=== PATIENT | male | born 1950 | race Caucasian/White ===

== ENCOUNTER 2020-04-07 22:37 | Emergency (ER) | payer OTHER, MEDICARE ==
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
== END 2020-04-07 22:55 ==
LOC: DL.ED 22:37
DX: F10.120 Alcohol abuse with intoxication, uncomplicated (principal); Z88.0 Allergy status to penicillin
CPT/HCPCS: 99282; 99284

== ENCOUNTER 2023-03-07 15:30 | Emergency (ER) | payer MEDICARE, OTHER ==
[2023-03-07 16:21] LABS: BASOPHILS PERCENT AUTO 0.1 % (0.0-1.0); HEMATOCRIT 49.2 % (40.0-54.0); HEMOGLOBIN 16.8 g/dL (14.0-18.0); LYMPHOCYTES PERCENT AUTO 2.6 % (20.5-50.1); MEAN CORPUSCULAR HEMOGLOBIN 33.7 pg (27.0-34.0); MEAN CORPUSCULAR HGB CONC 34.1 g/dL (33.0-35.0); MEAN CORPUSCULAR VOLUME 98.8 fL (80-100); MONOCYTES PERCENT AUTO 3.4 % (2-8); NEUTROPHILS PERCENT AUTO 93.9 % (42.2-75.2); PLATELET COUNT,PLT 128 10^3/uL (150-450); RED BLOOD CELL COUNT 4.98 10^6/uL (4.6-6.2); WHITE BLOOD CELL COUNT,WBC 11.4 10^3/uL (5.0-10.0)
[2023-03-07] MEDS: Sodium Chloride 0.9% 10 ML Syringe FLUSH PRN ×4 (16:24→18:06)
[2023-03-07 16:37] LABS: ALANINE AMINOTRANSFERASE,ALT 96 U/L (16-63); ALBUMIN 3.4 g/dL (3.4-5.0); ALKALINE PHOSPHATASE 110 U/L (46-116); ANION GAP 17.1 mEq/L (7-13); ASPARTATE AMNIOTRANSFERASE,AST 177 U/L (15-37); BILIRUBIN TOTAL 2.9 mg/dL (0.2-1.0); BLOOD UREA NITROGEN,BUN 9 mg/dL (7-18); BUN/CREATININE RATIO 8.5 (No establ ref range); CALCIUM 8.9 mg/dL (8.5-10.1); CARBON DIOXIDE,CO2 24 mmol/L (21-32); CHLORIDE,CL 103 mmol/L (98-107); CREATININE 1.06 mg/dL (0.70-1.30); EST CRCL DRUG DOSING (CG) 67.11 mL/min; GLUCOSE RANDOM 250 mg/dL (70-99); MAGNESIUM 1.4 mg/dL (1.8-2.4); POTASSIUM,K 4.1 mmol/L (3.5-5.1); PROTEIN TOTAL,TP 6.8 g/dL (6.4-8.2); SODIUM,NA 140 mmol/L (136-145)
[2023-03-07 16:38] LABS: ESTIMATED GFR 74 mL/min (>=60); ETHANOL BLOOD MEDICAL < 3 mg/dL (0)
[2023-03-07 16:39] LABS: LACTIC ACID 4.9 mmol/L (0.4-2.0)
[2023-03-07 16:41] LABS: AMPHETAMINES,URINE NEGATIVE (NEGATIVE); BARBITURATES,URINE NEGATIVE (NEGATIVE); BENZODIAZEPINE,URINE NEGATIVE (NEGATIVE); MDMA (ECSTASY), URINE NEGATIVE (NEGATIVE); METHADONE,URINE NEGATIVE (NEGATIVE); METHAMPHETAMINES,URINE NEGATIVE (NEGATIVE); OPIATES,URINE NEGATIVE (NEGATIVE); OXYCODONE,URINE NEGATIVE (NEGATIVE); PHENCYCLIDINE,URINE NEGATIVE (NEGATIVE); TCA,URINE NEGATIVE (NEGATIVE)
[2023-03-07] MEDS ORDERED: Metoprolol Tartrate 5 MG/5 ML SDV IVPUSH ONE ×2 (16:48→17:50)
[2023-03-07] MEDS ORDERED: Sodium Chloride 0.9% 1,000 ML IV ONE (16:51)
[2023-03-07] MEDS ORDERED: Magnesium Sulfate/Water 2 GM in Premix Bag 1 BAG IV ONE (16:52)
[2023-03-07 17:01] LABS: PROTHROMBIN TIME 10.4 SEC (9.0-12.0)
[2023-03-07] MEDS ORDERED: Heparin Sodium 5,000 Units/ML Vial IVPUSH ONE (17:31)
[2023-03-07 17:42] LABS: O2 DELIVERY DEVICE ROOM AIR
[2023-03-07 17:43] LABS: BASE EXCESS ARTERIAL 0 mmol/L ((-2)-(+3)); BICARBONATE,ARTERIAL 23.9 mmol/L (22-26); O2 SATURATION ARTERIAL 93 % (95-100); PCO2 ARTERIAL 39 mmHg (35-45); PH,ARTERIAL 7.41 (7.35-7.45); PO2 ARTERIAL 64 mmHg (70-100)
[2023-03-07] MEDS ORDERED: Heparin Sodium/0.45% NaCl 25,000 UNITS/500 ML BAG IV SCH (17:45)
[2023-03-07] MEDS ORDERED: Diltiazem 125 MG in Sodium Chloride 0.9% 100 ML IV SCH (18:30)
[2023-03-07] MEDS ORDERED: Diltiazem 25 MG/5 ML SDV IVPUSH ONE (18:30)
== END 2023-03-07 19:17 ==
LOC: DL.ED 15:30
DX: I48.91 Unspecified atrial fibrillation (principal); F10.939 Alcohol use, unspecified with withdrawal, unspecified; E83.42 Hypomagnesemia; R74.02 Elevation of levels of lactic acid dehydrogenase [LDH]; Z88.0 Allergy status to penicillin
CPT/HCPCS: 36415; 36600; 70450; 71045; 80053; 80305; 80307; 82140; 82803; 83605; 83735; 84145; 84484; 85025; 85610; 85730; 86140; 93005; 93010; 96365; 96368; 96375; 96376; 99284; 99285; C1758; J1644; J3475; J3490; J7030

== ENCOUNTER 2023-04-22 13:29 | Inpatient (IN) | payer MEDICARE ==
[~2023-04-22 13:29] MED LIST: Iopamidol 612 MG/ML 100 ML Bottle IVPUSH ONE; Ondansetron 4 MG/2 ML SDV IV ONE; Sodium Chloride 0.9% 1,000 ML IV ONE
[2023-04-22 13:33] LABS: BASOPHILS PERCENT AUTO 0.2 % (0.0-1.0); HEMATOCRIT 45.4 % (40.0-54.0); HEMOGLOBIN 15.2 g/dL (14.0-18.0); LYMPHOCYTES PERCENT AUTO 6.2 % (20.5-50.1); MEAN CORPUSCULAR HEMOGLOBIN 33.1 pg (27.0-34.0); MEAN CORPUSCULAR HGB CONC 33.5 g/dL (33.0-35.0); MEAN CORPUSCULAR VOLUME 98.9 fL (80-100); MONOCYTES PERCENT AUTO 7.8 % (2-8); NEUTROPHILS PERCENT AUTO 85.8 % (42.2-75.2); PLATELET COUNT,PLT 142 10^3/uL (150-450); RED BLOOD CELL COUNT 4.59 10^6/uL (4.6-6.2); WHITE BLOOD CELL COUNT,WBC 5.1 10^3/uL (5.0-10.0)
[2023-04-22 13:48] LABS: B-TYPE NATRIURETIC PEPTIDE,BNP 42 pg/ml (0-100)
[2023-04-22 13:53] LABS: PROTHROMBIN TIME 10.4 SEC (9.0-12.0); PTT,PARTIAL THROMBOPLSTIN TIME 24.5 SEC (22.0-34.0)
[2023-04-22] MEDS ORDERED: Diltiazem 25 MG/5 ML SDV IVPUSH ONE (13:53)
[2023-04-22 13:58] LABS: ALANINE AMINOTRANSFERASE,ALT 119 U/L (16-63); ALKALINE PHOSPHATASE 178 U/L (46-116); ANION GAP 15.5 mEq/L (7-13); ASPARTATE AMNIOTRANSFERASE,AST 153 U/L (15-37); BILIRUBIN TOTAL 1.4 mg/dL (0.2-1.0); BLOOD UREA NITROGEN,BUN 10 mg/dL (7-18); BUN/CREATININE RATIO 8.3 (No establ ref range); CALCIUM 9.1 mg/dL (8.5-10.1); CARBON DIOXIDE,CO2 27 mmol/L (21-32); CHLORIDE,CL 103 mmol/L (98-107); CREATININE 1.21 mg/dL (0.70-1.30); GLUCOSE RANDOM 265 mg/dL (70-99); POTASSIUM,K 3.5 mmol/L (3.5-5.1); PROTEIN TOTAL,TP 6.9 g/dL (6.4-8.2); SODIUM,NA 142 mmol/L (136-145)
[2023-04-22 14:05] LABS: A/G RATIO 0.77; ESTIMATED GFR 63 mL/min (>=60)
[2023-04-22 14:06] LABS: ETHANOL BLOOD MEDICAL < 3 mg/dL (0); MAGNESIUM 1.5 mg/dL (1.8-2.4); TSH ULTRASENSITIVE 0.88 uIU/mL (0.36-3.74)
[2023-04-22] MEDS: Diltiazem 125 MG in Sodium Chloride 0.9% 100 ML IV SCH ×2 (14:08→22:57)
[2023-04-22 14:11] LABS: LACTIC ACID 3.5 mmol/L (0.4-2.0)
[2023-04-22 14:12] LABS: AMYLASE 1366 U/L (25-115)
[2023-04-22 14:13] LABS: LIPASE > 2250 U/L (73-393)
[2023-04-22 15:06] LABS: APPEARANCE,URINE CLEAR (CLEAR); BILIRUBIN,URINE NEGATIVE (NEGATIVE); COLOR,URINE YELLOW (YELLOW); GLUCOSE,URINE NEGATIVE (NEGATIVE); KETONES,URINE NEGATIVE (NEGATIVE); LEUKOCYTE ESTERASE,URINE NEGATIVE (NEGATIVE); NITRITE,URINE NEGATIVE (NEGATIVE); OCCULT BLOOD,URINE SMALL (NEGATIVE); PH,URINE 6.5 (5.0-9.0); PROTEIN,URINE NEGATIVE (NEGATIVE)
[2023-04-22 15:08] LABS: AMPHETAMINES,URINE NEGATIVE (NEGATIVE); BARBITURATES,URINE NEGATIVE (NEGATIVE); BENZODIAZEPINE,URINE NEGATIVE (NEGATIVE); MDMA (ECSTASY), URINE NEGATIVE (NEGATIVE); METHADONE,URINE NEGATIVE (NEGATIVE); METHAMPHETAMINES,URINE NEGATIVE (NEGATIVE); OPIATES,URINE NEGATIVE (NEGATIVE); OXYCODONE,URINE NEGATIVE (NEGATIVE); PHENCYCLIDINE,URINE NEGATIVE (NEGATIVE); TCA,URINE NEGATIVE (NEGATIVE)
[2023-04-22] MEDS: Sodium Chloride 0.9% 10 ML Syringe FLUSH PRN ×3 (15:08→22:52)
[2023-04-22 15:14] LABS: EPITHELIAL CELLS,URINE RARE /HPF (NOT SEEN)
[2023-04-22 15:15] LABS: BACTERIA,URINE RARE /HPF (0-FEW/HPF); RBC,URINE 0-5 /HPF (0-5); WBC,URINE 0-5 /HPF (0-5/HPF)
[2023-04-22] MEDS ORDERED: Sodium Chloride 0.9% 1,000 ML IV ONE (15:57)
[2023-04-22] MEDS ORDERED: Magnesium Sulfate/Water 2 GM in Premix Bag 1 BAG IV ONE ×2 (17:12→17:13)
[2023-04-22] MEDS ORDERED: Bisacodyl 5 MG Tab PO PRN (17:47)
[2023-04-22] MEDS: Dextrose 5%-0.9% NaCl with KCl 1,000 ML IV SCH (18:25)
[2023-04-22] MEDS ORDERED: MVI, Adult with Vitamin K 10 ML, Folic Acid 1 MG, Thiamine 100 MG in Lactated Ringers 1... IV ONE ×4 (18:25)
[2023-04-22] MEDS ORDERED: MVI, Adult with Vitamin K 10 ML SDV IV ONE (18:25)
[2023-04-22] MEDS ORDERED: cloNIDine 0.1 MG Tab PO PRN (18:25)
[2023-04-22] MEDS: Morphine 2 MG/ML SYRINGE IVPUSH PRN ×2 (20:30→22:51)
[2023-04-22] MEDS ORDERED: Multivitamin Tab PO SCH (22:15)
[2023-04-22] MEDS ORDERED: Albuterol 6.7 GM Inhaler INH PRN (22:35)
[2023-04-22] MEDS: Thiamine 100 MG Tab PO SCH (22:49)
[2023-04-22] MEDS: Multivitamin Tab PO SCH (22:50)
[2023-04-22] MEDS: Folic Acid 1 MG Tab PO SCH (22:50)
[2023-04-22] MEDS: LORazepam 0.5 MG Tab PO PRN (23:45)
[2023-04-22] MEDS: Atenolol 50 MG Tab PO SCH (23:57)
[2023-04-23] MEDS: Dextrose 5%-0.9% NaCl with KCl 1,000 ML IV SCH ×3 (01:35→16:34)
[2023-04-23] MEDS: Pantoprazole 40 MG Tab.CR PO SCH (06:24)
[2023-04-23 06:38] LABS: BASOPHILS PERCENT AUTO 0.2 % (0.0-1.0); HEMATOCRIT 44.3 % (40.0-54.0); LYMPHOCYTES PERCENT AUTO 16.2 % (20.5-50.1); MEAN CORPUSCULAR HEMOGLOBIN 32.8 pg (27.0-34.0); MEAN CORPUSCULAR HGB CONC 31.6 g/dL (33.0-35.0); MEAN CORPUSCULAR VOLUME 103.7 fL (80-100); MONOCYTES PERCENT AUTO 8.7 % (2-8); NEUTROPHILS PERCENT AUTO 74.9 % (42.2-75.2); PLATELET COUNT,PLT 102 10^3/uL (150-450); RED BLOOD CELL COUNT 4.27 10^6/uL (4.6-6.2); WHITE BLOOD CELL COUNT,WBC 6.2 10^3/uL (5.0-10.0)
[2023-04-23 07:05] LABS: ALBUMIN 2.6 g/dL (3.4-5.0); ANION GAP 10.1 mEq/L (7-13); BILIRUBIN TOTAL 0.9 mg/dL (0.2-1.0); BUN/CREATININE RATIO 9.5 (No establ ref range); CALCIUM 8.2 mg/dL (8.5-10.1); CREATININE 0.84 mg/dL (0.70-1.30); EST CRCL DRUG DOSING (CG) 84.68 mL/min; POTASSIUM,K 4.1 mmol/L (3.5-5.1); PROTEIN TOTAL,TP 6.3 g/dL (6.4-8.2)
[2023-04-23 07:06] LABS: A/G RATIO 0.7
[2023-04-23] MEDS: Hydrochlorothiazide 25 MG Tab PO SCH (08:31)
[2023-04-23] MEDS: Multivitamin Tab PO SCH (08:31)
[2023-04-23] MEDS: Allopurinol 300 MG Tab PO SCH (08:31)
[2023-04-23] MEDS: Thiamine 100 MG Tab PO SCH (08:31)
[2023-04-23] MEDS: Folic Acid 1 MG Tab PO SCH (08:31)
[2023-04-23] MEDS: DULoxetine 30 MG Cap PO SCH (08:31)
[2023-04-23] MEDS: Lisinopril 20 MG Tab PO SCH (08:33)
[2023-04-23] MEDS: Atenolol 50 MG Tab PO SCH (08:33)
[2023-04-23] MEDS: cefTRIAXone 2 GM Vial IVPUSH SCH (09:55)
[2023-04-23] MEDS: Carvedilol 6.25 MG Tab PO SCH ×2 (09:55→17:33)
[2023-04-23 11:09] LABS: HEMOGLOBIN A1C 7.4 % (<5.7)
[2023-04-23] MEDS: Loratadine 10 MG Tab PO SCH (11:14)
[2023-04-23] MEDS: Sodium Chloride 0.9% 10 ML Syringe FLUSH PRN ×3 (21:13→21:17)
[2023-04-24] MEDS: LORazepam 0.5 MG Tab PO PRN ×2 (00:32→16:18)
[2023-04-24] MEDS: Albuterol/Ipratropium 3.0-0.5 MG/3 ML Neb Soln NEB SCH ×5 (00:55→21:01)
[2023-04-24] MEDS: Pantoprazole 40 MG Tab.CR PO SCH (05:29)
[2023-04-24 06:19] LABS: HEMATOCRIT 40.6 % (40.0-54.0); HEMOGLOBIN 12.8 g/dL (14.0-18.0); MEAN CORPUSCULAR HEMOGLOBIN 32.5 pg (27.0-34.0); MEAN CORPUSCULAR HGB CONC 31.5 g/dL (33.0-35.0); RED BLOOD CELL COUNT 3.94 10^6/uL (4.6-6.2); WHITE BLOOD CELL COUNT,WBC 4.8 10^3/uL (5.0-10.0)
[2023-04-24] MEDS ORDERED: Albuterol/Ipratropium 3.0-0.5 MG/3 ML Neb Soln NEB SCH (07:00)
[2023-04-24] MEDS: Lisinopril 20 MG Tab PO SCH (09:12)
[2023-04-24] MEDS: Multivitamin Tab PO SCH (09:12)
[2023-04-24] MEDS: DULoxetine 30 MG Cap PO SCH (09:12)
[2023-04-24] MEDS: Thiamine 100 MG Tab PO SCH (09:12)
[2023-04-24] MEDS: Carvedilol 6.25 MG Tab PO SCH ×2 (09:13→17:42)
[2023-04-24] MEDS: Allopurinol 300 MG Tab PO SCH (09:13)
[2023-04-24] MEDS: Loratadine 10 MG Tab PO SCH (09:14)
[2023-04-24] MEDS: Folic Acid 1 MG Tab PO SCH (09:14)
[2023-04-24] MEDS: Hydrochlorothiazide 25 MG Tab PO SCH (09:14)
[2023-04-24] MEDS: Sodium Chloride 0.9% 10 ML Syringe FLUSH PRN ×2 (09:15→10:52)
[2023-04-24] MEDS: cefTRIAXone 2 GM Vial IVPUSH SCH (09:16)
[2023-04-24 10:05] LABS: ALBUMIN 2.3 g/dL (3.4-5.0); ANION GAP 6.9 mEq/L (7-13); BILIRUBIN TOTAL 0.6 mg/dL (0.2-1.0); BUN/CREATININE RATIO 11.4 (No establ ref range); CALCIUM 8.2 mg/dL (8.5-10.1); CREATININE 0.79 mg/dL (0.70-1.30); EST CRCL DRUG DOSING (CG) 90.04 mL/min; POTASSIUM,K 3.9 mmol/L (3.5-5.1)
[2023-04-24 10:12] LABS: A/G RATIO 0.62
[2023-04-24] MEDS ORDERED: Carvedilol 6.25 MG Tab PO ONE (10:15)
[2023-04-24] MEDS: Furosemide 40 MG/4 ML VIAL IVPUSH SCH (10:52)
[2023-04-24] MEDS ORDERED: Albuterol/Ipratropium 3.0-0.5 MG/3 ML Neb Soln ONE (20:58)
[2023-04-25] MEDS: Pantoprazole 40 MG Tab.CR PO SCH (05:42)
[2023-04-25] MEDS: Albuterol/Ipratropium 3.0-0.5 MG/3 ML Neb Soln NEB SCH ×4 (07:05→20:17)
[2023-04-25] MEDS: Thiamine 100 MG Tab PO SCH (08:04)
[2023-04-25] MEDS: Carvedilol 6.25 MG Tab PO SCH ×2 (08:05→18:15)
[2023-04-25] MEDS: Multivitamin Tab PO SCH (08:05)
[2023-04-25] MEDS: Loratadine 10 MG Tab PO SCH (08:05)
[2023-04-25] MEDS: DULoxetine 30 MG Cap PO SCH (08:06)
[2023-04-25] MEDS: Allopurinol 300 MG Tab PO SCH (08:06)
[2023-04-25] MEDS: Hydrochlorothiazide 25 MG Tab PO SCH (08:06)
[2023-04-25] MEDS: Sodium Chloride 0.9% 10 ML Syringe FLUSH PRN (08:07)
[2023-04-25] MEDS: Lisinopril 20 MG Tab PO SCH (08:07)
[2023-04-25] MEDS: Furosemide 40 MG/4 ML VIAL IVPUSH SCH (08:09)
[2023-04-25] MEDS: Acetaminophen/HYDROcodone 325-10 MG Tab PO PRN (10:14)
[2023-04-25] MEDS: cefTRIAXone 2 GM Vial IVPUSH SCH (10:16)
[2023-04-26] MEDS: Albuterol/Ipratropium 3.0-0.5 MG/3 ML Neb Soln NEB SCH ×4 (06:07→20:25)
[2023-04-26] MEDS: Pantoprazole 40 MG Tab.CR PO SCH (06:07)
[2023-04-26] MEDS: Allopurinol 300 MG Tab PO SCH (08:06)
[2023-04-26] MEDS: Multivitamin Tab PO SCH (08:07)
[2023-04-26] MEDS: Hydrochlorothiazide 25 MG Tab PO SCH (08:07)
[2023-04-26] MEDS: Thiamine 100 MG Tab PO SCH (08:07)
[2023-04-26] MEDS: DULoxetine 30 MG Cap PO SCH (08:08)
[2023-04-26] MEDS: Lisinopril 20 MG Tab PO SCH (08:08)
[2023-04-26] MEDS: Loratadine 10 MG Tab PO SCH (08:08)
[2023-04-26] MEDS: Carvedilol 6.25 MG Tab PO SCH (08:09)
[2023-04-26] MEDS: Acetaminophen/HYDROcodone 325-10 MG Tab PO PRN (08:10)
[2023-04-26] MEDS: Docusate Sodium 100 MG Cap PO PRN (08:10)
[2023-04-26] MEDS: Sodium Chloride 0.9% 10 ML Syringe FLUSH PRN ×2 (08:13→09:37)
[2023-04-26] MEDS: Furosemide 40 MG/4 ML VIAL IVPUSH SCH (08:13)
[2023-04-26] MEDS ORDERED: LORazepam 2 MG/ML SDV IVPUSH PRN (08:47)
[2023-04-26] MEDS ORDERED: Metoprolol Tartrate 25 MG Tab PO SCH (09:00)
[2023-04-26] MEDS: cefTRIAXone 2 GM Vial IVPUSH SCH (09:37)
[2023-04-26] MEDS: Metoprolol Tartrate 25 MG Tab PO SCH ×2 (09:48→20:26)
[2023-04-26] MEDS ORDERED: 50% Dextrose in Water 50 ML Syringe IVPUSH PRN (10:37)
[2023-04-26] MEDS ORDERED: Glucagon,Human Recombinant 1 MG Vial IM PRN (10:37)
[2023-04-26] MEDS: amLODIPine 5 MG Tab PO SCH (10:56)
[2023-04-26] MEDS: Insulin Lispro 100 Units/ML 3 ML Vial SUBCUT SCH ×3 (12:17→20:27)
[2023-04-26] MEDS: Folic Acid 1 MG Tab PO SCH (20:25)
[2023-04-27 06:06] LABS: HEMOGLOBIN 14.7 g/dL (14.0-18.0); MEAN CORPUSCULAR HEMOGLOBIN 32.9 pg (27.0-34.0); MEAN CORPUSCULAR HGB CONC 33.4 g/dL (33.0-35.0); MEAN CORPUSCULAR VOLUME 98.4 fL (80-100); PLATELET COUNT,PLT 122 10^3/uL (150-450); RED BLOOD CELL COUNT 4.47 10^6/uL (4.6-6.2); WHITE BLOOD CELL COUNT,WBC 4.9 10^3/uL (5.0-10.0)
[2023-04-27] MEDS: Albuterol/Ipratropium 3.0-0.5 MG/3 ML Neb Soln NEB SCH ×4 (06:14→20:37)
[2023-04-27] MEDS: Pantoprazole 40 MG Tab.CR PO SCH (06:22)
[2023-04-27 06:26] LABS: BASOPHILS PERCENT AUTO 0.2 % (0.0-1.0); EOSINOPHILS PERCENT AUTO 2.3 % (1.0-3.0); LYMPHOCYTES PERCENT AUTO 26.2 % (20.5-50.1); MONOCYTES PERCENT AUTO 11.1 % (2-8); NEUTROPHILS PERCENT AUTO 60.2 % (42.2-75.2)
[2023-04-27 06:30] LABS: ALBUMIN 2.6 g/dL (3.4-5.0); ANION GAP 6.3 mEq/L (7-13); BILIRUBIN TOTAL 0.5 mg/dL (0.2-1.0); BUN/CREATININE RATIO 12.8 (No establ ref range); CALCIUM 9.1 mg/dL (8.5-10.1); CREATININE 0.86 mg/dL (0.70-1.30); EST CRCL DRUG DOSING (CG) 82.71 mL/min; MAGNESIUM 1.6 mg/dL (1.8-2.4); POTASSIUM,K 4.3 mmol/L (3.5-5.1); PROTEIN TOTAL,TP 6.8 g/dL (6.4-8.2)
[2023-04-27 06:31] LABS: A/G RATIO 0.62
[2023-04-27 07:00] LABS: BAND PERCENT MAN 1 %; LYMPHOCYTES PERCENT MAN 35 % (20-50); MONOCYTES PERCENT MAN 5 % (2-8); SEG NEUTROPHILS PERCENT MAN 59 % (42-75)
[2023-04-27] MEDS: Insulin Lispro 100 Units/ML 3 ML Vial SUBCUT SCH ×4 (07:35→20:37)
[2023-04-27] MEDS: Thiamine 100 MG Tab PO SCH (09:08)
[2023-04-27] MEDS: DULoxetine 30 MG Cap PO SCH (09:08)
[2023-04-27] MEDS: Polyethylene Glycol 3350 Powder 17 GM Packet PO SCH (09:08)
[2023-04-27] MEDS: Lisinopril 20 MG Tab PO SCH (09:09)
[2023-04-27] MEDS: Hydrochlorothiazide 25 MG Tab PO SCH (09:10)
[2023-04-27] MEDS: Multivitamin Tab PO SCH (09:10)
[2023-04-27] MEDS: Loratadine 10 MG Tab PO SCH (09:10)
[2023-04-27] MEDS: Metoprolol Tartrate 25 MG Tab PO SCH ×2 (09:10→20:37)
[2023-04-27] MEDS: Allopurinol 300 MG Tab PO SCH (09:10)
[2023-04-27] MEDS: Docusate Sodium 100 MG Cap PO PRN (09:11)
[2023-04-27] MEDS: amLODIPine 5 MG Tab PO SCH (09:11)
[2023-04-27] MEDS: Sennosides/Docusate Sodium 50-8.6 MG Tab PO PRN (09:12)
[2023-04-27] MEDS: Acetaminophen/HYDROcodone 325-10 MG Tab PO PRN (09:14)
[2023-04-27] MEDS: Sodium Chloride 0.9% 10 ML Syringe FLUSH PRN (09:15)
[2023-04-27] MEDS: cefTRIAXone 2 GM Vial IVPUSH SCH (09:19)
[2023-04-27] MEDS: Folic Acid 1 MG Tab PO SCH (20:37)
[2023-04-28] MEDS: Pantoprazole 40 MG Tab.CR PO SCH (06:11)
[2023-04-28 06:14] LABS: HEMATOCRIT 43.3 % (40.0-54.0); HEMOGLOBIN 14.2 g/dL (14.0-18.0); MEAN CORPUSCULAR HEMOGLOBIN 32.2 pg (27.0-34.0); MEAN CORPUSCULAR HGB CONC 32.8 g/dL (33.0-35.0); MEAN CORPUSCULAR VOLUME 98.2 fL (80-100); PLATELET COUNT,PLT 152 10^3/uL (150-450); RED BLOOD CELL COUNT 4.41 10^6/uL (4.6-6.2); WHITE BLOOD CELL COUNT,WBC 4.8 10^3/uL (5.0-10.0)
[2023-04-28 06:20] LABS: LYMPHOCYTES PERCENT AUTO 27.6 % (20.5-50.1); NEUTROPHILS PERCENT AUTO 59.2 % (42.2-75.2)
[2023-04-28 06:21] LABS: BASOPHILS PERCENT AUTO 0.2 % (0.0-1.0); EOSINOPHILS PERCENT AUTO 2.3 % (1.0-3.0); MONOCYTES PERCENT AUTO 10.7 % (2-8)
[2023-04-28] MEDS: Albuterol/Ipratropium 3.0-0.5 MG/3 ML Neb Soln NEB SCH ×4 (06:30→20:53)
[2023-04-28 06:31] LABS: ALBUMIN 2.5 g/dL (3.4-5.0); ANION GAP 8.3 mEq/L (7-13); BILIRUBIN TOTAL 0.6 mg/dL (0.2-1.0); BUN/CREATININE RATIO 10.8 (No establ ref range); CREATININE 0.83 mg/dL (0.70-1.30); EST CRCL DRUG DOSING (CG) 85.7 mL/min; MAGNESIUM 1.9 mg/dL (1.8-2.4); POTASSIUM,K 3.3 mmol/L (3.5-5.1); PROTEIN TOTAL,TP 6.8 g/dL (6.4-8.2)
[2023-04-28 06:32] LABS: A/G RATIO 0.58
[2023-04-28 06:41] LABS: EOSINOPHILS PERCENT MAN 2 % (1-3); LYMPHOCYTES PERCENT MAN 24 % (20-50); MONOCYTES PERCENT MAN 9 % (2-8); SEG NEUTROPHILS PERCENT MAN 65 % (42-75)
[2023-04-28] MEDS: DULoxetine 30 MG Cap PO SCH (08:08)
[2023-04-28] MEDS: Thiamine 100 MG Tab PO SCH (08:09)
[2023-04-28] MEDS: Allopurinol 300 MG Tab PO SCH (08:09)
[2023-04-28] MEDS: Lisinopril 20 MG Tab PO SCH (08:09)
[2023-04-28] MEDS: Hydrochlorothiazide 25 MG Tab PO SCH (08:10)
[2023-04-28] MEDS: amLODIPine 5 MG Tab PO SCH (08:10)
[2023-04-28] MEDS: Metoprolol Tartrate 25 MG Tab PO SCH ×2 (08:11→20:52)
[2023-04-28] MEDS: Multivitamin Tab PO SCH (08:11)
[2023-04-28] MEDS: Aspirin 81 MG Tab.EC PO SCH (08:11)
[2023-04-28] MEDS: Loratadine 10 MG Tab PO SCH (08:11)
[2023-04-28] MEDS: Polyethylene Glycol 3350 Powder 17 GM Packet PO SCH (08:12)
[2023-04-28] MEDS: cefTRIAXone 2 GM Vial IVPUSH SCH (09:35)
[2023-04-28] MEDS: Insulin Lispro 100 Units/ML 3 ML Vial SUBCUT SCH ×4 (10:09→20:59)
[2023-04-28] MEDS: Potassium Chloride 10 MEQ Tab.ER PO SCH ×3 (10:40→12:56)
[2023-04-28] MEDS: Sennosides/Docusate Sodium 50-8.6 MG Tab PO PRN (20:52)
[2023-04-28] MEDS: Folic Acid 1 MG Tab PO SCH (20:53)
[2023-04-28] MEDS: Sodium Chloride 0.9% 10 ML Syringe FLUSH PRN (21:05)
[2023-04-29] MEDS: Pantoprazole 40 MG Tab.CR PO SCH (06:16)
[2023-04-29 06:20] LABS: HEMOGLOBIN 14.3 g/dL (14.0-18.0); MEAN CORPUSCULAR HEMOGLOBIN 32.1 pg (27.0-34.0); MEAN CORPUSCULAR HGB CONC 32.5 g/dL (33.0-35.0); MEAN CORPUSCULAR VOLUME 98.9 fL (80-100); PLATELET COUNT,PLT 179 10^3/uL (150-450); RED BLOOD CELL COUNT 4.45 10^6/uL (4.6-6.2); WHITE BLOOD CELL COUNT,WBC 5.9 10^3/uL (5.0-10.0)
[2023-04-29] MEDS: Albuterol/Ipratropium 3.0-0.5 MG/3 ML Neb Soln NEB SCH ×5 (06:23→20:35)
[2023-04-29 06:32] LABS: BASOPHILS PERCENT AUTO 0.3 % (0.0-1.0); EOSINOPHILS PERCENT AUTO 2.5 % (1.0-3.0); LYMPHOCYTES PERCENT AUTO 26.5 % (20.5-50.1); MONOCYTES PERCENT AUTO 11.7 % (2-8)
[2023-04-29 06:39] LABS: ALBUMIN 2.7 g/dL (3.4-5.0); ANION GAP 9.9 mEq/L (7-13); BILIRUBIN TOTAL 0.6 mg/dL (0.2-1.0); BUN/CREATININE RATIO 10.8 (No establ ref range); CALCIUM 9.3 mg/dL (8.5-10.1); CREATININE 0.83 mg/dL (0.70-1.30); EST CRCL DRUG DOSING (CG) 85.7 mL/min; MAGNESIUM 1.8 mg/dL (1.8-2.4); POTASSIUM,K 3.9 mmol/L (3.5-5.1); PROTEIN TOTAL,TP 7.1 g/dL (6.4-8.2)
[2023-04-29 06:44] LABS: A/G RATIO 0.61
[2023-04-29 06:58] LABS: BAND PERCENT MAN 1 %; EOSINOPHILS PERCENT MAN 2 % (1-3); LYMPHOCYTES PERCENT MAN 20 % (20-50); MONOCYTES PERCENT MAN 13 % (2-8); SEG NEUTROPHILS PERCENT MAN 64 % (42-75)
[2023-04-29] MEDS: Allopurinol 300 MG Tab PO SCH (08:39)
[2023-04-29] MEDS: Aspirin 81 MG Tab.EC PO SCH (08:39)
[2023-04-29] MEDS: DULoxetine 30 MG Cap PO SCH (08:39)
[2023-04-29] MEDS: Thiamine 100 MG Tab PO SCH (08:40)
[2023-04-29] MEDS: Loratadine 10 MG Tab PO SCH (08:40)
[2023-04-29] MEDS: Multivitamin Tab PO SCH (08:40)
[2023-04-29] MEDS: amLODIPine 5 MG Tab PO SCH (08:41)
[2023-04-29] MEDS: Metoprolol Tartrate 25 MG Tab PO SCH ×2 (08:42→20:35)
[2023-04-29] MEDS: Hydrochlorothiazide 25 MG Tab PO SCH (08:42)
[2023-04-29] MEDS: Lisinopril 20 MG Tab PO SCH (08:42)
[2023-04-29] MEDS: Polyethylene Glycol 3350 Powder 17 GM Packet PO SCH (08:46)
[2023-04-29] MEDS: Insulin Lispro 100 Units/ML 3 ML Vial SUBCUT SCH ×4 (08:47→20:44)
[2023-04-29] MEDS ORDERED: Bisacodyl 10 MG Supp RECTAL ONE (09:34)
[2023-04-29] MEDS: cefTRIAXone 2 GM Vial IVPUSH SCH (10:51)
[2023-04-29] MEDS: Folic Acid 1 MG Tab PO SCH (20:35)
[2023-04-29] MEDS: Sennosides/Docusate Sodium 50-8.6 MG Tab PO PRN (20:37)
[2023-04-30] MEDS: Acetaminophen/HYDROcodone 325-10 MG Tab PO PRN (01:40)
[2023-04-30] MEDS: Pantoprazole 40 MG Tab.CR PO SCH (05:44)
[2023-04-30 05:58] LABS: HEMATOCRIT 45.1 % (40.0-54.0); MEAN CORPUSCULAR HEMOGLOBIN 32.3 pg (27.0-34.0); MEAN CORPUSCULAR HGB CONC 33.3 g/dL (33.0-35.0); MEAN CORPUSCULAR VOLUME 97.2 fL (80-100); PLATELET COUNT,PLT 208 10^3/uL (150-450); RED BLOOD CELL COUNT 4.64 10^6/uL (4.6-6.2); WHITE BLOOD CELL COUNT,WBC 4.9 10^3/uL (5.0-10.0)
[2023-04-30] MEDS: Albuterol/Ipratropium 3.0-0.5 MG/3 ML Neb Soln NEB SCH ×5 (06:03→22:13)
[2023-04-30 06:11] LABS: BASOPHILS PERCENT AUTO 0.4 % (0.0-1.0); EOSINOPHILS PERCENT AUTO 3.3 % (1.0-3.0); LYMPHOCYTES PERCENT AUTO 30.3 % (20.5-50.1); MONOCYTES PERCENT AUTO 12.4 % (2-8); NEUTROPHILS PERCENT AUTO 53.6 % (42.2-75.2)
[2023-04-30 06:44] LABS: EOSINOPHILS PERCENT MAN 2 % (1-3); LYMPHOCYTES PERCENT MAN 26 % (20-50); MONOCYTES PERCENT MAN 13 % (2-8); SEG NEUTROPHILS PERCENT MAN 59 % (42-75)
[2023-04-30 07:27] LABS: ALBUMIN 2.7 g/dL (3.4-5.0); ANION GAP 9.8 mEq/L (7-13); BILIRUBIN TOTAL 0.6 mg/dL (0.2-1.0); BUN/CREATININE RATIO 13.8 (No establ ref range); CALCIUM 9.3 mg/dL (8.5-10.1); CREATININE 0.8 mg/dL (0.70-1.30); EST CRCL DRUG DOSING (CG) 88.92 mL/min; POTASSIUM,K 3.8 mmol/L (3.5-5.1); PROTEIN TOTAL,TP 7.2 g/dL (6.4-8.2)
[2023-04-30 07:29] LABS: A/G RATIO 0.6
[2023-04-30] MEDS: Polyethylene Glycol 3350 Powder 17 GM Packet PO SCH (09:00)
[2023-04-30] MEDS: Insulin Lispro 100 Units/ML 3 ML Vial SUBCUT SCH ×4 (09:20→22:11)
[2023-04-30] MEDS: Hydrochlorothiazide 25 MG Tab PO SCH (09:22)
[2023-04-30] MEDS: Allopurinol 300 MG Tab PO SCH (09:22)
[2023-04-30] MEDS: Lactulose Soln 10 GM/15 ML 30 ML UD Cup PO PRN ×2 (09:22→22:13)
[2023-04-30] MEDS: Aspirin 81 MG Tab.EC PO SCH (09:22)
[2023-04-30] MEDS: Thiamine 100 MG Tab PO SCH (09:23)
[2023-04-30] MEDS: Multivitamin Tab PO SCH (09:23)
[2023-04-30] MEDS: DULoxetine 30 MG Cap PO SCH (09:23)
[2023-04-30] MEDS: Loratadine 10 MG Tab PO SCH (09:23)
[2023-04-30] MEDS: amLODIPine 5 MG Tab PO SCH (09:24)
[2023-04-30] MEDS: Metoprolol Tartrate 25 MG Tab PO SCH ×2 (09:24→22:10)
[2023-04-30] MEDS: Lisinopril 20 MG Tab PO SCH (09:25)
[2023-04-30] MEDS: Sodium Chloride 0.9% 10 ML Syringe FLUSH PRN (09:27)
[2023-04-30] MEDS: cefTRIAXone 2 GM Vial IVPUSH SCH (09:28)
[2023-04-30] MEDS ORDERED: Acetaminophen 325 MG Tab PO PRN (10:19)
[2023-04-30] MEDS: Folic Acid 1 MG Tab PO SCH (22:10)
[2023-05-01] MEDS: Pantoprazole 40 MG Tab.CR PO SCH (05:28)
[2023-05-01] MEDS: Albuterol/Ipratropium 3.0-0.5 MG/3 ML Neb Soln NEB SCH ×2 (06:12→10:13)
[2023-05-01 06:22] LABS: HEMATOCRIT 44.4 % (40.0-54.0); HEMOGLOBIN 14.6 g/dL (14.0-18.0); MEAN CORPUSCULAR HEMOGLOBIN 32.3 pg (27.0-34.0); MEAN CORPUSCULAR HGB CONC 32.9 g/dL (33.0-35.0); MEAN CORPUSCULAR VOLUME 98.2 fL (80-100); PLATELET COUNT,PLT 227 10^3/uL (150-450); RED BLOOD CELL COUNT 4.52 10^6/uL (4.6-6.2); WHITE BLOOD CELL COUNT,WBC 4.9 10^3/uL (5.0-10.0)
[2023-05-01 06:33] LABS: BASOPHILS PERCENT AUTO 0.4 % (0.0-1.0); EOSINOPHILS PERCENT AUTO 2.7 % (1.0-3.0); LYMPHOCYTES PERCENT AUTO 32.9 % (20.5-50.1); MONOCYTES PERCENT AUTO 13.8 % (2-8); NEUTROPHILS PERCENT AUTO 50.2 % (42.2-75.2)
[2023-05-01 06:43] LABS: ALBUMIN 2.8 g/dL (3.4-5.0); BILIRUBIN TOTAL 0.5 mg/dL (0.2-1.0); CALCIUM 9.6 mg/dL (8.5-10.1); CREATININE 0.8 mg/dL (0.70-1.30); EST CRCL DRUG DOSING (CG) 88.92 mL/min; PROTEIN TOTAL,TP 7.3 g/dL (6.4-8.2)
[2023-05-01 06:45] LABS: A/G RATIO 0.62
[2023-05-01 06:54] LABS: EOSINOPHILS PERCENT MAN 2 % (1-3); LYMPHOCYTES % ATYPICAL MANUAL 1 %; LYMPHOCYTES PERCENT MAN 33 % (20-50); MONOCYTES PERCENT MAN 17 % (2-8); SEG NEUTROPHILS PERCENT MAN 47 % (42-75)
[2023-05-01] MEDS: Insulin Lispro 100 Units/ML 3 ML Vial SUBCUT SCH (08:34)
[2023-05-01] MEDS: Polyethylene Glycol 3350 Powder 17 GM Packet PO SCH (09:40)
[2023-05-01] MEDS: Thiamine 100 MG Tab PO SCH (09:40)
[2023-05-01] MEDS: Allopurinol 300 MG Tab PO SCH (09:41)
[2023-05-01] MEDS: Aspirin 81 MG Tab.EC PO SCH (09:41)
[2023-05-01] MEDS: Metoprolol Tartrate 25 MG Tab PO SCH (09:41)
[2023-05-01] MEDS: DULoxetine 30 MG Cap PO SCH (09:41)
[2023-05-01] MEDS: Loratadine 10 MG Tab PO SCH (09:42)
[2023-05-01] MEDS: Multivitamin Tab PO SCH (09:42)
[2023-05-01] MEDS: Lisinopril 20 MG Tab PO SCH (09:42)
[2023-05-01] MEDS: Hydrochlorothiazide 25 MG Tab PO SCH (09:42)
[2023-05-01] MEDS: amLODIPine 5 MG Tab PO SCH (09:43)
[2023-05-01] MEDS: cefTRIAXone 2 GM Vial IVPUSH SCH (09:58)
== END 2023-05-01 10:38 | DRG 871 ==
LOC: DL.ED 13:29 → DL.MS 17:45
PROVIDERS: ADMIT Hospitalist; ATTEND Internal Medicine
DX: A41.51 Sepsis due to Escherichia coli [E. coli] (principal); G93.41 Metabolic encephalopathy; I48.20 Chronic atrial fibrillation, unspecified; F03.918 Unspecified dementia, unspecified severity, with other behavioral disturbance; E87.20 Acidosis, unspecified; K86.0 Alcohol-induced chronic pancreatitis; E66.9 Obesity, unspecified; G31.9 Degenerative disease of nervous system, unspecified; M47.813 Spondylosis without myelopathy or radiculopathy, cervicothoracic region; E86.0 Dehydration; E83.42 Hypomagnesemia; T67.9XXA Effect of heat and light, unspecified, initial encounter; F10.20 Alcohol dependence, uncomplicated; I10 Essential (primary) hypertension; M25.571 Pain in right ankle and joints of right foot; D69.6 Thrombocytopenia, unspecified; E78.5 Hyperlipidemia, unspecified; M19.90 Unspecified osteoarthritis, unspecified site; M06.9 Rheumatoid arthritis, unspecified; G47.33 Obstructive sleep apnea (adult) (pediatric); Z20.822 Contact with and (suspected) exposure to COVID-19; E88.09 Other disorders of plasma-protein metabolism, not elsewhere classified; E11.65 Type 2 diabetes mellitus with hyperglycemia; E83.52 Hypercalcemia; R74.01 Elevation of levels of liver transaminase levels; R79.89 Other specified abnormal findings of blood chemistry; M45.9 Ankylosing spondylitis of unspecified sites in spine; Z96.649 Presence of unspecified artificial hip joint; Z88.0 Allergy status to penicillin; Z79.899 Other long term (current) drug therapy; Z59.00 Homelessness unspecified; Z68.39 Body mass index [BMI] 39.0-39.9, adult; Z85.46 Personal history of malignant neoplasm of prostate; Z79.82 Long term (current) use of aspirin; Z79.84 Long term (current) use of oral hypoglycemic drugs
CPT/HCPCS: 36415; 51702; 70450; 71260; 72125; 73600-RT; 74177; 80053; 80305-QW; 80307; 81001; 82140; 82150; 82947; 83036; 83605; 83690; 83735; 83880; 84145; 84443; 84484; 85025; 85027; 85610; 85730; 87040; 87077; 87186; 93005; 93010; 93306; 94010; 94060; 94640; 96361; 96374; 96375; 97110-GO; 97110-GP; 97161-GP; 97165-GO; 97530-GO; 97530-GP; 97535-GO; 99284-25; 99285; A9270-GY; J0696; J1815-GY; J1940; J2270; J2405; J3475; J3480; J3490; J7030; J7620-GY; Q9967; U0002